=== PATIENT | male | born 1980 | race Caucasian/White ===

== ENCOUNTER 2017-03-23 20:30 | Emergency (ER) | payer BC ==
[2017-03-23 20:43] VITALS: BP 141/98
[2017-03-23] MEDS ORDERED: Ketorolac 60 MG/2 ML SDV IM ONE (20:46)
[2017-03-23] MEDS ORDERED: Acetaminophen/HYDROcodone 325-10 MG Tab PO ONE (20:48)
[2017-03-23] MEDS ORDERED: methylPREDNISolone Sodium Succinate 125 MG/2 ML SDV IM ONE (20:48)
[2017-03-23] MEDS ORDERED: Take Home: Acetaminophen/HYDROcodone 325-10 MG, 5 Tab Pack PO ONE (21:46)
--- NOTE | 2017-03-24 17:29 | EDM.PDOC ---
ED HPI GENERAL MEDICAL PROBLEM - General Chief Complaint: Lower Extremity Injury/Pain Stated Complaint: RIGHT FOOT PAIN Time Seen by Provider: 03/23/17 20:39 Source of Information: Reports: Patient - History of Present Illness INITIAL COMMENTS - FREE TEXT/NARRATIVE: Pt. has an established history of gout. Pt. states that he has been experiencing significant discomfort to R great toe. He states that he previously had been on Uloric but stopped taking the medication. He states that it has been several years since his last flareup. He denies any discomfort other than what is isolated to his R great toe. 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 [No Known Home Meds] 03/23/17 [History] Past Medical History Endocrine/Metabolic History: Reports: Other (See Below) Other Endocrine/Metabolic History: Gout Social & Family History - Family History Family Medical History: Noncontributory - Tobacco Use Smoking Status *Q: Current Every Day Smoker Years of Tobacco use: 20 Packs/Tins Daily: 0.5 Second Hand Smoke Exposure: Yes - Caffeine Use Caffeine Use: Reports: Coffee - Alcohol Use Days Per Week of Alcohol Use: 1 Number of Drinks Per Day: 2 Total Drinks Per Week: 2 - Recreational Drug Use Recreational Drug Use: No Review of Systems - Review of Systems Review Of Systems: See Below Constitutional: Reports: No Symptoms Respiratory: Reports: No Symptoms Cardiovascular: Reports: No Symptoms Musculoskeletal: Reports: Joint Pain (Pain and erythema to R great toe) ED EXAM, GENERAL - Physical Exam Exam: See Below Exam Limited By: No Limitations General Appearance: Alert, WD/WN Respiratory/Chest: No Respiratory Distress, Lungs Clear, Normal Breath Sounds, No Accessory Muscle Use, Chest Non-Tender Cardiovascular: Normal Peripheral Pulses, Regular Rate, Rhythm, No Edema, No Gallop, No JVD, No Murmur Extremities: Normal Capillary Refill (pain, swelling, and erythema to R great toe), Joint Swelling, Redness Skin Exam: Warm, Dry Course - Vital Signs Last Recorded V/S: Last Vital Signs Temp 97.1 C H 03/23/17 20:39 Pulse 123 H 03/23/17 20:39 Resp 16 03/23/17 20:39 BP 141/98 H 03/23/17 20:39 Pulse Ox 95 03/23/17 20:39 - Orders/Labs/Meds Labs: Laboratory Tests 03/23/17 Range/Units 21:04 Uric Acid 7.3 H (3.5-7.2) mg/dL C-Reactive Protein 3.3 H (<=0.9) mg/dL Meds: Medications Discontinued Medications Generic Name Dose Route Start Last Admin Trade Name Charline PRN Reason Stop Dose Admin Hydrocodone Bitart/Acetaminophen 1 tab 03/23/17 20:48 03/23/17 21:03 [place] 325-10 Mg PO 03/23/17 20:49 1 tab ONETIME ONE Administration Hydrocodone Bitart/Acetaminophen 1 packet 03/23/17 21:46 03/23/17 22:04 Take Home: Acetaminophen/Hydrocodone 325-10mg PO 03/23/17 21:47 1 packet ONETIME ONE Administration Ketorolac Tromethamine 60 mg 03/23/17 20:46 03/23/17 21:02 Toradol IM 03/23/17 20:47 60 mg ONETIME ONE Administration Methylprednisolone Sodium Succinate 125 mg 03/23/17 20:48 03/23/17 21:02 Solu-Medrol IM 03/23/17 20:49 125 mg ONETIME ONE Administration Departure - Departure Time of Disposition: 20:45 Disposition: Home, Self-Care 01 Clinical Impression: Gout, Great toe pain - Discharge Information Instructions: Low-Purine Diet, Gout Referrals: PCP,None [Primary Care Provider] - Forms: ED Department Discharge Additional Instructions: Indomethacin 50mg three times daily Prednisone 60mg once daily Hydrocodone 10/325mg 1 every 4-6 hours as needed for pain Follow low-purine diet drink plenty of fluids Follow-up with primary care in 14 days for recheck/to start uloric/allopurinol. - Assessment/Plan Assessment:: gout, R great toe Plan: Indomethacin 50mg three times daily Prednisone 60mg once daily Hydrocodone 10/325mg 1 every 4-6 hours as needed for pain Follow low-purine diet drink plenty of fluids Follow-up with primary care in 14 days for recheck/to start uloric/allopurinol.
== END 2017-03-23 22:15 | disposition home or self-care (01) ==
LOC: VM.ED 20:30
DX: M10.9 Gout, unspecified (principal); F17.210 Nicotine dependence, cigarettes, uncomplicated
CPT/HCPCS: 36415; 84550; 86140; 96372; 99283; A9270; J1885; J2930